=== PATIENT | female | born 1930 | race Caucasian/White ===

== ENCOUNTER 2017-07-15 15:32 | Inpatient (IN) | payer MEDICARE ==
[~2017-07-15] VITALS: Ht 162.6 cm; Wt 54.5 kg
[2017-07-15 19:11] LABS: INFLUENZA TYPE A POSITIVE FOR TYPE A (NEGATIVE); INFLUENZA TYPE B NEGATIVE FOR TYPE B (NEGATIVE)
[2017-07-15] MEDS ORDERED: OSELTAMIVIR PHOSPHATE 75 MG CAPSULE PO ONE (19:30)
[2017-07-15 19:43] LABS: HEMOGLOBIN 12.7 g/dL (12.0-16.0); LYMPHOCYTES # (AUTO) 1.1 K/uL (1.0-4.8)
[2017-07-15 19:46] LABS: BASOPHILS % (AUTO) 0.2 % (0.0-2.0); EOSINOPHILS % (AUTO) 0.1 % (1.0-6.0); HEMATOCRIT 37.2 % (36-46); LYMPHOCYTES % (AUTO) 11.3 % (22.0-44.0); MEAN CORPUSCULAR HEMOGLOBIN 31.6 pg (26.0-34.0); MEAN CORPUSCULAR HGB CONC 34.1 G/dL (31.0-37.0); MEAN CORPUSCULAR VOLUME 93 fL (80-100); MONOCYTES # (AUTO) 0.5 K/uL (0.1-1.0); MONOCYTES % (AUTO) 4.9 % (2.0-9.0); NEUTROPHILS # (AUTO) 7.8 K/uL (1.8-7.7); NEUTROPHILS % (AUTO) 83.5 % (40.0-70.0); PLATELET COUNT (AUTO) 238 K/uL (150-450); RED BLOOD CELL COUNT(AUTO) 4.01 MIL/uL (4.00-5.20); RED CELL DISTRIBUTION WIDTH 13.9 % (11.5-14.5)
[2017-07-15 19:58] LABS: ANION GAP 9 mmol/L (8-16); CALCIUM, TOTAL 8.9 mg/dL (8.8-10.5); CARBON DIOXIDE 28 mmol/L (22-29); CHLORIDE 98 mmol/L (98-107); GLOMERULAR FILTR. RATE CALC > 60 mL/min (>60); GLUCOSE,RANDOM 107 mg/dL (70-110); POTASSIUM 3.7 mmol/L (3.5-5.1); SODIUM SERUM 135 mmol/L (136-145); UREA NITROGEN, BLOOD 10 mg/dL (7-18)
[2017-07-15 19:59] LABS: INR 1.1 (0.9-1.1); PROTHROMBIN TIME 11.2 SEC (9.4-11.6)
[2017-07-15 20:04] LABS: ALANINE AMINOTRANSFERASE 18 U/L (12-78); ALBUMIN 3.7 g/dL (3.4-5.0); ALKALINE PHOSPHATASE 88 U/L (46-116); ASPARTATE AMINOTRANSFERASE 19 U/L (15-37); BILIRUBIN,TOTAL 0.8 mg/dL (0.1-1.0); CREATINE KINASE, TOTAL 40 U/L (26-192); TOTAL PROTEIN, SERUM 7.5 g/dL (6.4-8.2)
[2017-07-15 20:06] LABS: LACTIC ACID 1.1 mmol/L (0.4-2.0)
[2017-07-15 21:20] LABS: B-TYPE NATRIURETIC PEPTIDE 97 pg/mL (0-100)
[2017-07-15] MEDS ORDERED: 0.9% SODIUM CHLORIDE 10 ML SYRINGE IVP PRN (21:30)
[2017-07-15] MEDS ORDERED: LEVOFLOXACIN 500 MG/D5% WATER 100 ML IV ONE (21:30)
[2017-07-15] MEDS ORDERED: ACETAMINOPHEN 325 MG TABLET PO PRN (21:30)
[2017-07-15] MEDS ORDERED: ONDANSETRON HCL 4 MG/2 ML VIAL IVP PRN (21:30)
[2017-07-15] MEDS: IPRATROPIUM BROMIDE 0.5 MG/2.5 ML NEB SOLUTION NEB SCH (23:40)
[2017-07-15] MEDS: ALBUTEROL SULFATE 2.5 MG/0.5 ML NEB SOLUTION NEB SCH (23:40)
[2017-07-16] MEDS: OSELTAMIVIR PHOSPHATE 75 MG CAPSULE PO SCH ×2 (08:50→21:12)
[2017-07-16] MEDS: IPRATROPIUM BROMIDE 0.5 MG/2.5 ML NEB SOLUTION NEB SCH (08:55)
[2017-07-16] MEDS: ALBUTEROL SULFATE 2.5 MG/0.5 ML NEB SOLUTION NEB SCH (08:55)
[2017-07-16 09:13] LABS: BASOPHILS # (AUTO) 0.02 K/uL (0.00-0.20); BASOPHILS % (AUTO) 0.3 % (0.0-2.0); EOSINOPHILS # (AUTO) 0.03 K/uL (0.00-0.70); HEMATOCRIT 34.1 % (36-46); HEMOGLOBIN 11.4 g/dL (12.0-16.0); LYMPHOCYTES # (AUTO) 1.2 K/uL (1.0-4.8); LYMPHOCYTES % (AUTO) 15.7 % (22.0-44.0); MEAN CORPUSCULAR HEMOGLOBIN 31.5 pg (26.0-34.0); MEAN CORPUSCULAR HGB CONC 33.4 G/dL (31.0-37.0); MEAN CORPUSCULAR VOLUME 94 fL (80-100); MONOCYTES # (AUTO) 0.5 K/uL (0.1-1.0); MONOCYTES % (AUTO) 6.6 % (2.0-9.0); NEUTROPHILS # (AUTO) 5.7 K/uL (1.8-7.7); PLATELET COUNT (AUTO) 193 K/uL (150-450); RED BLOOD CELL COUNT(AUTO) 3.61 MIL/uL (4.00-5.20); RED CELL DISTRIBUTION WIDTH 13.7 % (11.5-14.5)
[2017-07-16 09:23] LABS: ANION GAP 9 mmol/L (8-16); CALCIUM, TOTAL 8.6 mg/dL (8.8-10.5); CARBON DIOXIDE 27 mmol/L (22-29); CHLORIDE 100 mmol/L (98-107); CREATININE 0.62 mg/dL (0.60-1.30); GLOMERULAR FILTR. RATE CALC > 60 mL/min (>60); GLUCOSE,RANDOM 90 mg/dL (70-110); POTASSIUM 4.3 mmol/L (3.5-5.1); SODIUM SERUM 136 mmol/L (136-145); UREA NITROGEN, BLOOD 10 mg/dL (7-18)
[2017-07-16] MEDS: HYDROCODONE/ACETAMINOPHEN 5-325 MG TABLET PO PRN (12:15)
[2017-07-16 15:46] VITALS: BP 104/57
[2017-07-16 16:18] VITALS: BP 93/51
[2017-07-16] MEDS ORDERED: IOVERSOL 350 MG/ML 100 ML VIAL ONE (17:55)
[2017-07-16] MEDS ORDERED: SODIUM CHLORIDE 0.9% 250 ML IV ONE (18:41)
[2017-07-16 18:52] LABS: BILIRUBIN,URINE NEGATIVE (NEGATIVE); GLUCOSE, URINE (UA) 500 mg/dL (NEGATIVE); KETONES,URINE 15 mg/dL (NEGATIVE); NITRATE,URINE NEGATIVE (NEGATIVE); OCCULT BLOOD,URINE NEGATIVE (NEGATIVE); PH,URINE 6.5 (5.0-8.0); PROTEIN,URINE NEGATIVE (NEGATIVE); UROBILINOGEN,URINE 0.2 mg/dL (<=1.0)
[2017-07-16] MEDS: CefTRIAXone 1 GM/DEXTROSE 50 ML IV SCH (18:53)
[2017-07-16 19:06] LABS: APPEARANCE,URINE HAZY (CLEAR); LEUKOCYTE ESTERASE ,URINE SMALL (NEGATIVE)
[2017-07-16 19:07] LABS: BACTERIA,URINE None Seen /HPF (None Seen); RBC,URINE 0-2 /HPF (0-2); SQUAMOUS EPITHELIAL CELL,UR Moderate /LPF (None Seen)
[2017-07-16 20:03] VITALS: BP 114/63
[2017-07-17] VITALS (7 sets, daily range): BP systolic 94–115; BP diastolic 49–59
[2017-07-17] MEDS: OSELTAMIVIR PHOSPHATE 75 MG CAPSULE PO SCH ×2 (09:08→20:06)
[2017-07-17] MEDS: AZITHROMYCIN 250 MG in SODIUM CHLORIDE 0.9% 150 ML IV SCH (13:05)
[2017-07-17] MEDS: CefTRIAXone 1 GM/DEXTROSE 50 ML IV SCH (19:00)
[2017-07-18 04:48] VITALS: BP 99/53
[2017-07-18 07:01] LABS: ANION GAP 9 mmol/L (8-16); CALCIUM, TOTAL 8.2 mg/dL (8.8-10.5); CARBON DIOXIDE 25 mmol/L (22-29); CHLORIDE 99 mmol/L (98-107); CREATININE 0.66 mg/dL (0.60-1.30); GLOMERULAR FILTR. RATE CALC > 60 mL/min (>60); GLUCOSE,RANDOM 100 mg/dL (70-110); POTASSIUM 3.4 mmol/L (3.5-5.1); SODIUM SERUM 133 mmol/L (136-145); UREA NITROGEN, BLOOD 7 mg/dL (7-18)
[2017-07-18 07:21] LABS: BASOPHILS # (AUTO) 0.02 K/uL (0.00-0.20); BASOPHILS % (AUTO) 0.2 % (0.0-2.0); EOSINOPHILS # (AUTO) 0.04 K/uL (0.00-0.70); EOSINOPHILS % (AUTO) 0.48 % (1.0-6.0); HEMATOCRIT 33.1 % (36-46); LYMPHOCYTES # (AUTO) 1.8 K/uL (1.0-4.8); MEAN CORPUSCULAR HEMOGLOBIN 31.4 pg (26.0-34.0); MEAN CORPUSCULAR HGB CONC 33.2 G/dL (31.0-37.0); MEAN CORPUSCULAR VOLUME 95 fL (80-100); MONOCYTES % (AUTO) 10.7 % (2.0-9.0); NEUTROPHILS # (AUTO) 6.3 K/uL (1.8-7.7); NEUTROPHILS % (AUTO) 68.7 % (40.0-70.0); PLATELET COUNT (AUTO) 221 K/uL (150-450); RED BLOOD CELL COUNT(AUTO) 3.49 MIL/uL (4.00-5.20); RED CELL DISTRIBUTION WIDTH 13.7 % (11.5-14.5)
[2017-07-18 07:59] VITALS: BP 93/43
[2017-07-18] MEDS: OSELTAMIVIR PHOSPHATE 75 MG CAPSULE PO SCH ×2 (08:45→21:27)
[2017-07-18] MEDS ORDERED: SODIUM CHLORIDE 0.9% 1,000 ML IV ONE (09:45)
[2017-07-18] MEDS ORDERED: POTASSIUM CHL 10 MEQ/WATER 50 ML IV PRN (09:45)
[2017-07-18] MEDS: AZITHROMYCIN 250 MG in SODIUM CHLORIDE 0.9% 150 ML IV SCH (10:49)
[2017-07-18 11:34] VITALS: BP 100/51
[2017-07-18 15:36] VITALS: BP 126/57
[2017-07-18] MEDS: CefTRIAXone 1 GM/DEXTROSE 50 ML IV SCH (18:03)
[2017-07-18] MEDS: HYDROCODONE/ACETAMINOPHEN 5-325 MG TABLET PO PRN (18:03)
[2017-07-18 19:52] VITALS: BP 104/46
[2017-07-18] MEDS: HEPARIN SODIUM,PORCINE 5,000 UNITS/ML VIAL SQ SCH (21:27)
[2017-07-19] VITALS (7 sets, daily range): BP systolic 100–126; BP diastolic 42–64
[2017-07-19] MEDS: HYDROCODONE/ACETAMINOPHEN 5-325 MG TABLET PO PRN (02:30)
[2017-07-19] MEDS: POTASSIUM CHLORIDE 20 MEQ ER TABLET PO PRN (03:20)
[2017-07-19] MEDS: OSELTAMIVIR PHOSPHATE 75 MG CAPSULE PO SCH ×2 (08:06→20:22)
[2017-07-19] MEDS: HEPARIN SODIUM,PORCINE 5,000 UNITS/ML VIAL SQ SCH ×2 (08:06→20:21)
[2017-07-19] MEDS: AZITHROMYCIN 250 MG in SODIUM CHLORIDE 0.9% 150 ML IV SCH (11:02)
[2017-07-19] MEDS: CefTRIAXone 1 GM/DEXTROSE 50 ML IV SCH (18:46)
[2017-07-20 03:21] VITALS: BP 121/54
[2017-07-20 07:04] LABS: BASOPHILS # (AUTO) 0.08 K/uL (0.00-0.20); BASOPHILS % (AUTO) 0.9 % (0.0-2.0); EOSINOPHILS # (AUTO) 0.22 K/uL (0.00-0.70); EOSINOPHILS % (AUTO) 2.64 % (1.0-6.0); HEMATOCRIT 38.6 % (36-46); HEMOGLOBIN 12.7 g/dL (12.0-16.0); LYMPHOCYTES # (AUTO) 3.6 K/uL (1.0-4.8); LYMPHOCYTES % (AUTO) 43.4 % (22.0-44.0); MEAN CORPUSCULAR HEMOGLOBIN 31.1 pg (26.0-34.0); MEAN CORPUSCULAR HGB CONC 32.8 G/dL (31.0-37.0); MEAN CORPUSCULAR VOLUME 95 fL (80-100); MONOCYTES # (AUTO) 0.6 K/uL (0.1-1.0); MONOCYTES % (AUTO) 7.3 % (2.0-9.0); NEUTROPHILS # (AUTO) 3.8 K/uL (1.8-7.7); NEUTROPHILS % (AUTO) 45.8 % (40.0-70.0); PLATELET COUNT (AUTO) 302 K/uL (150-450); RED BLOOD CELL COUNT(AUTO) 4.07 MIL/uL (4.00-5.20); RED CELL DISTRIBUTION WIDTH 13.5 % (11.5-14.5)
[2017-07-20 07:47] LABS: ANION GAP 9 mmol/L (8-16); CARBON DIOXIDE 28 mmol/L (22-29); CHLORIDE 103 mmol/L (98-107); CREATININE 0.64 mg/dL (0.60-1.30); GLOMERULAR FILTR. RATE CALC > 60 mL/min (>60); GLUCOSE,RANDOM 89 mg/dL (70-110); POTASSIUM 3.9 mmol/L (3.5-5.1); SODIUM SERUM 140 mmol/L (136-145); UREA NITROGEN, BLOOD 5 mg/dL (7-18)
[2017-07-20 08:00] VITALS: BP 133/64
[2017-07-20] MEDS: OSELTAMIVIR PHOSPHATE 75 MG CAPSULE PO SCH ×2 (08:38→20:00)
[2017-07-20] MEDS: POTASSIUM CHLORIDE 20 MEQ ER TABLET PO PRN (08:39)
[2017-07-20] MEDS: HEPARIN SODIUM,PORCINE 5,000 UNITS/ML VIAL SQ SCH ×2 (08:39→20:00)
[2017-07-20] MEDS ORDERED: SODIUM CHLORIDE 0.9% 250 ML IV ONE (11:03)
[2017-07-20] MEDS: AZITHROMYCIN 250 MG in SODIUM CHLORIDE 0.9% 150 ML IV SCH (11:06)
[2017-07-20 11:24] VITALS: BP 122/62
[2017-07-20] MEDS: HYDROCODONE/ACETAMINOPHEN 5-325 MG TABLET PO PRN (12:14)
[2017-07-20 15:50] VITALS: BP 111/61
[2017-07-20] MEDS: CefTRIAXone 1 GM/DEXTROSE 50 ML IV SCH (16:56)
[2017-07-20 19:06] VITALS: BP 116/58
[2017-07-20 23:06] VITALS: BP 127/64
[2017-07-21 05:55] VITALS: BP 126/64
[2017-07-21 07:35] VITALS: BP 122/65
[2017-07-21] MEDS: HEPARIN SODIUM,PORCINE 5,000 UNITS/ML VIAL SQ SCH ×2 (08:44→20:41)
[2017-07-21] MEDS: OSELTAMIVIR PHOSPHATE 75 MG CAPSULE PO SCH ×2 (08:44→20:41)
[2017-07-21] MEDS: AZITHROMYCIN 250 MG in SODIUM CHLORIDE 0.9% 150 ML IV SCH (11:07)
[2017-07-21 12:02] VITALS: BP 122/60
[2017-07-21 15:28] VITALS: BP 120/61
[2017-07-21] MEDS: CefTRIAXone SODIUM 1 GM/VIAL IVP SCH (17:54)
[2017-07-21 21:06] VITALS: BP 118/62
[2017-07-22] VITALS (7 sets, daily range): BP systolic 106–120; BP diastolic 53–62
[2017-07-22] MEDS: OSELTAMIVIR PHOSPHATE 75 MG CAPSULE PO SCH ×2 (09:12→20:13)
[2017-07-22] MEDS: HEPARIN SODIUM,PORCINE 5,000 UNITS/ML VIAL SQ SCH ×2 (09:12→20:13)
[2017-07-22] MEDS: AZITHROMYCIN 250 MG in SODIUM CHLORIDE 0.9% 150 ML IV SCH (11:24)
[2017-07-22] MEDS: CefTRIAXone SODIUM 1 GM/VIAL IVP SCH (18:04)
[2017-07-22] MEDS: HYDROCODONE/ACETAMINOPHEN 5-325 MG TABLET PO PRN (18:16)
[2017-07-23 04:00] VITALS: BP 115/57
[2017-07-23 07:38] VITALS: BP 126/65
[2017-07-23] MEDS: OSELTAMIVIR PHOSPHATE 75 MG CAPSULE PO SCH (08:41)
[2017-07-23] MEDS: HEPARIN SODIUM,PORCINE 5,000 UNITS/ML VIAL SQ SCH (08:41)
[2017-07-23 11:46] VITALS: BP 109/55
[2017-07-23] MEDS: AZITHROMYCIN 250 MG in SODIUM CHLORIDE 0.9% 150 ML IV SCH (12:11)
[2017-07-23] MEDS ORDERED: LEVO500 PO (14:09)
== END 2017-07-23 14:42 | disposition home or self-care (01) | DRG 194 ==
LOC: EMS 15:34 → 5N 07-16 05:24 → AHU 07-16 10:26 → 6N 07-16 15:29
PROVIDERS: ADMIT Internal Medicine; ATTEND Internal Medicine
DX: J10.00 Influenza due to other identified influenza virus with unspecified type of pneumonia (principal); E87.1 Hypo-osmolality and hyponatremia; R64 Cachexia; J21.9 Acute bronchiolitis, unspecified; D64.9 Anemia, unspecified; E87.6 Hypokalemia; R91.8 Other nonspecific abnormal finding of lung field; R53.81 Other malaise; R91.1 Solitary pulmonary nodule; Z78.9 Other specified health status
CPT/HCPCS: 71260; 83605; 83735; 84132; 86480; 87015; 87040; 87804; 93005; 94640; 96365; 97116; 97161; 97530; 99285; J0456; J0696; J1644; J1956; J7030; J7050

== ENCOUNTER → 2017-09-20 | Outpatient (CLI) | payer MEDICARE, OTHER ==
[~2017-09-20] MED LIST: LEVO500 PO
== END | disposition home or self-care (01) ==
LOC: RADMN 09:41
PROVIDERS: ATTEND Hospitalist
DX: J18.9 Pneumonia, unspecified organism (principal); R91.8 Other nonspecific abnormal finding of lung field
CPT/HCPCS: 71250